=== PATIENT | male | born 1990 | race Caucasian/White ===

== ENCOUNTER 2018-07-16 07:03 | Emergency (ER) | payer MEDICAID, OTHER ==
--- NOTE | 2018-07-16 07:33 | UC ---
Elbow Pain - HPI Summary HPI Summary: The patient is a 28-year-old male that has had left elbow pain for greater than 5 years. He states that he was seen for this numerous times while living in [place]. He states he was told he had tennis elbow. He states that he has been unable to fully extend his arm for for greater than 5 years. 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 He tries to baby his left arm. Pain is been getting progressively worse. - History of Current Complaint Chief Complaint: UCUpperExtremity Stated Complaint: ARM PAIN Time Seen by Provider: 07/16/18 07:18 Hx Obtained From: Patient Onset/Duration: Weeks - >5 yrs Severity Initially: Moderate Severity Currently: Moderate Pain Intensity: 8 Pain Scale Used: 0-10 Numeric Location Of Pain: Is Diffuse Character: Aching, Throbbing, Spasmodic Aggravating Factor(s): Movement, Pulling, Twisting Alleviating Factor(s): Rest - Allergies/Home Medications Allergies/Adverse Reactions: Allergies Allergy/AdvReac Type Severity Reaction Status Date / Time No Known Allergies Allergy Verified 07/16/18 07:15 PMH/Surg Hx/FS Hx/Imm Hx Previously Healthy: Yes - Surgical History Surgical History: None - Family History Known Family History: Positive: Hypertension, Diabetes - Social History Alcohol Use: None Substance Use Type: Marijuana Smoking Status (MU): Former Smoker Review of Systems All Other Systems Reviewed And Are Negative: Yes Constitutional: Positive: Negative Skin: Positive: Negative Eyes: Positive: Negative ENT: Positive: Negative Respiratory: Positive: Negative Cardiovascular: Positive: Negative Gastrointestinal: Positive: Negative Genitourinary: Positive: Negative Motor: Positive: Negative Neurovascular: Positive: Negative Musculoskeletal: Positive: Arthralgia - L elbow, Decreased ROM - L elbow Neurological: Positive: Negative Psychological: Positive: Negative Physical Exam Triage Information Reviewed: Yes Appearance: Well-Appearing, No Pain Distress, Well-Nourished Vital Signs: Initial Vital Signs Temp 98.2 F 07/16/18 07:16 Pulse 79 07/16/18 07:16 Resp 16 07/16/18 07:16 BP 139/67 07/16/18 07:16 Pulse Ox 100 07/16/18 07:16 Vital Signs Reviewed: Yes Eyes: Positive: Conjunctiva Clear ENT: Positive: Hearing grossly normal. Negative: Nasal congestion, Nasal drainage, Trismus, Muffled voice Neck: Positive: Supple, Nontender, No Lymphadenopathy Respiratory: Positive: Lungs clear, Normal breath sounds, No respiratory distress, No accessory muscle use Cardiovascular: Positive: RRR, No Murmur Musculoskeletal: Positive: ROM Limited @ - L elbow, markdely decreased ROM, most tender just proximal to olecranon Neurological: Positive: Alert Psychological Exam: Normal Skin Exam: Normal Diagnostics - Radiology No standard instances Radiology Interpretation Completed By: Radiologist Summary of Radiographic Findings: MODERATE OSTEOARTHRITIC CHANGE Elbow Pain Course/Dx - Differential Dx/Diagnosis 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
== END 2018-07-16 08:50 | disposition home or self-care (01) ==
LOC: UCEAST 07:03
DX: M19.022 Primary osteoarthritis, left elbow (principal); Z87.891 Personal history of nicotine dependence
CPT/HCPCS: 99202; G0463